=== PATIENT | male | born 1960 ===

== ENCOUNTER 2019-08-28 18:10 | Day surgery (SDC) | payer OTHER ==
--- NOTE | 2019-08-28 19:02 | EDM.PDOC ---
ED HPI GENERAL MEDICAL PROBLEM - General Chief Complaint: Genitourinary Problem Stated Complaint: STOMACH PAIN Time Seen by Provider: 08/28/19 19:02 Source of Information: Reports: Patient History Limitations: Reports: No Limitations - History of Present Illness INITIAL COMMENTS - FREE TEXT/NARRATIVE: HISTORY AND PHYSICAL: History of present illness: Patient is a 59-year-old male presents to the ED with complaint of groin swelling. He states over the past few days he has developed swelling to the left right groin area. He states the area is tender. He states he has not had a bowel movement in 4 days and is having frequent urination and this it is related to the swelling. He states he did have some bright red blood per rectum yesterday but not bowel movement. He denies fevers, chills, nausea, vomiting. Review of systems: As per history of present illness and below otherwise all systems reviewed and negative. Past medical history: As per history of present illness and as reviewed below otherwise noncontributory. Surgical history: As per history of present illness and as reviewed below otherwise noncontributory. Social history: No reported history of drug or alcohol abuse. Family history: As per history of present illness and as reviewed below otherwise noncontributory. Physical exam: General: Patient sitting comfortably in no acute distress and nontoxic appearing HEENT: Atraumatic, normocephalic, pupils reactive, negative for conjunctival pallor or scleral icterus, mucous membranes moist, throat clear, neck supple, nontender, trachea midline. No meningeal signs. Lungs: Clear to auscultation, breath sounds equal bilaterally, chest nontender. Heart: S1S2, regular, negative for clicks, rubs, or overt murmur. Abdomen: Soft, nondistended, nontender. Negative for masses or hepatosplenomegaly. Negative for costovertebral tenderness. No rigidity, rebound , guarding. Pelvis: Stable nontender. Genitourinary: There is a large area of swelling to the left groin without erythema. Tender to palpation. Rectal: No hemorrhoids appreciated. Hemoccult positive Extremities: Atraumatic, negative for cords or calf pain. Neurovascular unremarkable. Neuro: Awake, alert, oriented. Cranial nerves II through XII unremarkable. Cerebellum unremarkable. Motor and sensory unremarkable throughout. Exam nonfocal. Notes: Diagnostics: CBC, CMP, CT abdomen/pelvis w/ contrast, UA Therapeutics: [] Prescriptions: Impression: Incarcerated left inguinal hernia, large bowel obstruction Plan: Discussed with Dr. Champion, patient will be taken to OR for incarcerated hernia Definitive disposition and diagnosis as appropriate pending reevaluation and review of above. Pelvic Pain Score (Numeric/FACES): 7 - Related Data Allergies Allergy/AdvReac Type Severity Reaction Status Date / Time No Known Allergies Allergy Verified 08/28/19 18:21 Home Meds: Home Meds . [No Known Home Meds] 08/28/19 [History] Past Medical History - Infectious Disease History Infectious Disease History: Reports: Chicken Pox, Measles - Past Surgical History Musculoskeletal Surgical History: Reports: Hip Replacement Social & Family History - Family History Family Medical History: Noncontributory - Tobacco Use Smoking Status *Q: Never Smoker Second Hand Smoke Exposure: No - Caffeine Use Caffeine Use: Reports: Coffee - Recreational Drug Use Recreational Drug Use: No ED ROS GENERAL - Review of Systems Review Of Systems: ROS reveals no pertinent complaints other than HPI. ED EXAM, RENAL/ - Physical Exam Exam: See Below (see dictation) Course - Vital Signs Last Recorded V/S: Last Vital Signs Temp 97.4 F 08/28/19 20:00 Pulse 88 08/28/19 20:00 Resp 18 08/28/19 20:00 BP 114/73 08/28/19 20:00 Pulse Ox 96 08/28/19 20:00 - Orders/Labs/Meds Orders: Active Orders 24 hr Category Date Time Status Admission Status [Patient Status] [ADT] Stat ADT 08/28/19 20:16 Active Labs: Laboratory Tests 08/28/19 08/28/19 08/28/19 Range/Units 18:27 18:40 18:40 WBC 11.27 H (4.0-11.0) K/uL RBC 5.33 (4.50-5.90) M/uL Hgb 17.6 H (13.0-17.0) g/dL Hct 49.2 (38.0-50.0) % MCV 92.3 (80.0-98.0) fL MCH 33.0 H (27.0-32.0) pg MCHC 35.8 (31.0-37.0) g/dL RDW Std Deviation 41.0 (28.0-62.0) fl RDW Coeff of Esther 12 (11.0-15.0) % Plt Count 249 (150-400) K/uL MPV 10.00 (7.40-12.00) fL Neut % (Auto) 74.5 (48.0-80.0) % Lymph % (Auto) 14.6 L (16.0-40.0) % [place] % (Auto) 9.5 (0.0-15.0) % Eos % (Auto) 1.2 (0.0-7.0) % Baso % (Auto) 0.2 (0.0-1.5) % Neut # (Auto) 8.4 H (1.4-5.7) K/uL Lymph # (Auto) 1.7 (0.6-2.4) K/uL [place] # (Auto) 1.1 H (0.0-0.8) K/uL Eos # (Auto) 0.1 (0.0-0.7) K/uL Baso # (Auto) 0.0 (0.0-0.1) K/uL Nucleated RBC % 0.0 /100WBC Nucleated RBCs # 0 K/uL Sodium 137 (136-148) mmol/L Potassium 3.9 (3.5-5.1) mmol/L Chloride 101 (98-107) mmol/L Carbon Dioxide 23.9 (21.0-32.0) mmol/L BUN 21 H (7.0-18.0) mg/dL Creatinine 1.2 (0.8-1.3) mg/dL Est Cr Clr Drug Dosing 79.22 mL/min Estimated GFR (MDRD) > 60.0 ml/min Glucose 150 H (74-106) mg/dL Calcium 8.9 (8.5-10.1) mg/dL Total Bilirubin 0.8 (0.2-1.0) mg/dL AST 13 L (15-37) IU/L ALT 23 (14-63) IU/L Alkaline Phosphatase 113 (46-116) U/L Total Protein 8.0 (6.4-8.2) g/dL Albumin 3.7 (3.4-5.0) g/dL Globulin 4.3 H (2.6-4.0) g/dL Albumin/Globulin Ratio 0.9 (0.9-1.6) Urine Color YELLOW Urine Appearance HAZY Urine pH 5.5 (5.0-8.0) Ur Specific [place] 1.025 (1.001-1.035) Urine Protein NEGATIVE (NEGATIVE) mg/dL Urine Glucose (UA) NEGATIVE (NEGATIVE) mg/dL Urine Ketones TRACE H (NEGATIVE) mg/dL Urine Occult Blood NEGATIVE (NEGATIVE) Urine Nitrite NEGATIVE (NEGATIVE) Urine Bilirubin NEGATIVE (NEGATIVE) Urine Urobilinogen 0.2 (<2.0) EU/dL Ur Leukocyte Esterase NEGATIVE (NEGATIVE) Meds: Medications Discontinued Medications Generic Name Dose Route Start Last Admin Trade Name Freq PRN Reason Stop Dose Admin Iopamidol 100 ml 08/28/19 19:54 08/28/19 19:54 Isovue Multipack-370 (76%) IVPUSH 08/28/19 19:55 100 ml ONETIME STA Administration Departure - Departure Time of Disposition: 20:40 Disposition: Still A Patient 30 Condition: Good Clinical Impression: Incarcerated left inguinal hernia, Large bowel obstruction - Discharge Information - My Orders Last 24 Hours: My Active Orders 08/28/19 20:16 Admission Status [Patient Status] [ADT] Stat - Assessment/Plan Last 24 Hours: My Active Orders 08/28/19 20:16 Admission Status [Patient Status] [ADT] Stat
[2019-08-28 19:03] LABS: BLOOD UREA NITROGEN,BUN 21 mg/dL (7.0-18.0); CARBON DIOXIDE,CO2 23.9 mmol/L (21.0-32.0); CHLORIDE,CL 101 mmol/L (98-107); GLUCOSE RANDOM 150 mg/dL (74-106); POTASSIUM,K 3.9 mmol/L (3.5-5.1); SODIUM,NA 137 mmol/L (136-148)
[2019-08-28] MEDS ORDERED: Iopamidol 755 MG/ML 500 ML Multipack Bottle IVPUSH STA (19:54)
--- NOTE | 2019-08-28 20:18 | CT ---
INDICATION: Left lower quadrant pain and swelling x4 days. TECHNIQUE: CT abdomen and pelvis acquired with 100 mL of Isovue 370 IV contrast. COMPARISON: None. FINDINGS: Lower chest: Minimal bibasilar scarring or atelectasis. Lung bases are otherwise clear. No pleural or pericardial effusions. Small hiatal hernia. Liver: No focal liver lesion. Spleen: Lesion with peripheral irregular enhancement measures 2.4 cm. Pancreas: Unremarkable. Gallbladder and bile ducts: Unremarkable. Kidneys: Unremarkable. Adrenal glands: Unremarkable. GI tract: The proximal large bowel is mildly distended and loaded with fecal material. There is large bowel extending into a left inguinal hernia with abrupt change in caliber distal to the hernia along with heterogeneous fat stranding and fluid within the left inguinal hernia. There is adjacent colonic diverticulosis with pericolonic stranding. No definite perforation or drainable intra-abdominal fluid collection. Normal appendix. Vascular structures: No abdominal aortic aneurysm. Lymph nodes: No pathologic lymphadenopathy. Pelvic Organs: Mild prostatomegaly. There is mild mass effect on the bladder as result of the hernia and inflammatory changes in the left lower quadrant. Bones: No acute osseous abnormality. Degenerative changes of the spine and pelvis. Left hip arthroplasty appears intact. IMPRESSION: 1. Evolving large bowel obstruction with transition point in a left inguinal hernia. There are inflammatory changes in the left lower quadrant and hernia sac along with a small amount of fluid in the hernia. No definite perforation. The inflammatory changes adjacent to the bowel are thought to be related to obstruction and less likely superimposed diverticulitis. Surgical consultation recommended. 2. Peripheral enhancing lesion in the spleen is thought to most likely represent a hemangioma. However, follow-up CT or MRI liver protocol in 6 months is recommended to document stability. Large bowel obstruction was discussed with Dr. Quach at the time of dictation. Dictated by Gamaliel Joseph MD @ 08/28/2019 8:15:42 PM Please note that all CT scans at this facility use dose modulation, iterative reconstruction, and/or weight-based dosing when appropriate to reduce radiation dose to as low as reasonably achievable. Dictated by: Gamaliel Joseph MD @ 08/28/2019 20:15:57 (Electronically Signed)
[2019-08-28] MEDS ORDERED: cefOXitin 2 GM in Premix Bag 1 BAG IV ONE (20:46)
[2019-08-28] MEDS ORDERED: Lactated Ringers 1,000 ML IV SCH ×2 (21:00→23:45)
--- NOTE | 2019-08-28 21:02 | PCM.CONS ---
H&P History of Present Illness - General Date of Service: 08/28/19 Admit Problem/Dx: Admission Diagnosis/Problem Admission Diagnosis/Problem Abdominal pain Incarcerated left inguinal hernia Source of Information: Patient History Limitations: Reports: No Limitations - History of Present Illness Initial Comments - Free Text/Narative: Patient is a 59-year-old gentleman who presented to the emergency room today with a 4 to five-day history of a bulge in the left groin. He cannot think of any antecedent trauma. He is now unable to reduce the bulge. He states he is constipated. He denies any nausea or vomiting. He last had something to eat at about 4 PM today. He was able to keep that down. He does however state his appetite is poor. Duration of Symptoms: Reports: Day(s):, Getting Worse Location: Reports: Abdomen Quality: Reports: Pressure, Throbbing Severity: Severe Improves with: Reports: Rest Worsens with: Reports: Movement Context: Reports: Sick Contact Associated Symptoms: Reports: Loss of Appetite. Denies: Confusion, Fever/Chills Pelvic Pain Score (Numeric/FACES): 7 - Related Data Allergies/Adverse Reactions: Allergies Allergy/AdvReac Type Severity Reaction Status Date / Time No Known Allergies Allergy Verified 08/28/19 18:21 Home Medications: Home Meds . [No Known Home Meds] 08/28/19 [History] Past Medical History - Infectious Disease History Infectious Disease History: Reports: Chicken Pox, Measles - Past Surgical History Musculoskeletal Surgical History: Reports: Hip Replacement Social & Family History - Family History Family Medical History: Noncontributory - Tobacco Use Smoking Status *Q: Never Smoker Second Hand Smoke Exposure: No - Caffeine Use Caffeine Use: Reports: Coffee - Recreational Drug Use Recreational Drug Use: No H&P Review of Systems - Review of Systems: Review Of Systems: See Below General: Denies: Fever, Chills, Malaise, Weakness, Fatigue HEENT: Reports: No Symptoms Pulmonary: Denies: Shortness of Breath, Wheezing Cardiovascular: Denies: Chest Pain, Palpitations Gastrointestinal: Reports: Abdominal Pain, Anorexia, Constipation, Decreased Appetite, Flatus. Denies: Black Stool, Bloody Stool, Diarrhea, Distension, Hematemesis, Hematochezia, Melena, Nausea, Vomiting Genitourinary: Denies: Dysuria, Frequency, Burning, Pain, Urgency Skin: Reports: No Symptoms Psychiatric: Reports: No Symptoms Neurological: Reports: No Symptoms Hematologic/Lymphatic: Reports: No Symptoms Immunologic: Reports: No Symptoms Exam - Exam Exam: See Below - Vital Signs Vital Signs: Last Vital Signs Temp 97.4 F 08/28/19 20:52 Pulse 88 08/28/19 20:52 Resp 18 08/28/19 20:52 BP 101/76 08/28/19 20:52 Pulse Ox 95 08/28/19 20:52 Weight: 195 lb - Exam Quality Assessment: No: Supplemental Oxygen General: Alert, Oriented, Cooperative, Moderate Distress HEENT: Conjunctiva Clear, EACs Clear, EOMI, Pupils Equal, Pupils Reactive. No: Scleral Icterus Neck: Supple, Trachea Midline Lungs: Clear to Auscultation, Normal Respiratory Effort, Decreased Breath Sounds Cardiovascular: Regular Rate, Regular Rhythm, Normal S1, Normal S2 GI/Abdominal Exam: Normal Bowel Sounds, Soft, No Distention, Tender, Hernia ( Incarcerated left inguinal). No: Guarding, Rigid, Rebound (Male) Exam: Deferred, Hernia Rectal (Males) Exam: Deferred Back Exam: Normal Inspection, Full Range of Motion Extremities: Normal Inspection, Normal Range of Motion, Other (Well-healed left hip incision.) Peripheral Pulses: 4+: Posterior Tibial (L), Posterior Tibial (R), Dorsalis Pedis (L), Dorsalis Pedis (R) Skin: Warm, Dry, Intact Neurological: Cranial Nerves Intact, Reflexes Equal Bilateral Psychiatric: Alert, Normal Affect, Normal Mood - Patient Data Lab Results Last 24 hrs: Laboratory Results - last 24 hr 08/28/19 08/28/19 08/28/19 Range/Units 18:27 18:40 18:40 WBC 11.27 H (4.0-11.0) K/uL RBC 5.33 (4.50-5.90) M/uL Hgb 17.6 H (13.0-17.0) g/dL Hct 49.2 (38.0-50.0) % MCV 92.3 (80.0-98.0) fL MCH 33.0 H (27.0-32.0) pg MCHC 35.8 (31.0-37.0) g/dL RDW Std Deviation 41.0 (28.0-62.0) fl RDW Coeff of Esther 12 (11.0-15.0) % Plt Count 249 (150-400) K/uL MPV 10.00 (7.40-12.00) fL Neut % (Auto) 74.5 (48.0-80.0) % Lymph % (Auto) 14.6 L (16.0-40.0) % [place] % (Auto) 9.5 (0.0-15.0) % Eos % (Auto) 1.2 (0.0-7.0) % Baso % (Auto) 0.2 (0.0-1.5) % Neut # (Auto) 8.4 H (1.4-5.7) K/uL Lymph # (Auto) 1.7 (0.6-2.4) K/uL [place] # (Auto) 1.1 H (0.0-0.8) K/uL Eos # (Auto) 0.1 (0.0-0.7) K/uL Baso # (Auto) 0.0 (0.0-0.1) K/uL Nucleated RBC % 0.0 /100WBC Nucleated RBCs # 0 K/uL Sodium 137 (136-148) mmol/L Potassium 3.9 (3.5-5.1) mmol/L Chloride 101 (98-107) mmol/L Carbon Dioxide 23.9 (21.0-32.0) mmol/L BUN 21 H (7.0-18.0) mg/dL Creatinine 1.2 (0.8-1.3) mg/dL Est Cr Clr Drug Dosing 79.22 mL/min Estimated GFR (MDRD) > 60.0 ml/min Glucose 150 H (74-106) mg/dL Calcium 8.9 (8.5-10.1) mg/dL Total Bilirubin 0.8 (0.2-1.0) mg/dL AST 13 L (15-37) IU/L ALT 23 (14-63) IU/L Alkaline Phosphatase 113 (46-116) U/L Total Protein 8.0 (6.4-8.2) g/dL Albumin 3.7 (3.4-5.0) g/dL Globulin 4.3 H (2.6-4.0) g/dL Albumin/Globulin Ratio 0.9 (0.9-1.6) Urine Color YELLOW Urine Appearance HAZY Urine pH 5.5 (5.0-8.0) Ur Specific [place] 1.025 (1.001-1.035) Urine Protein NEGATIVE (NEGATIVE) mg/dL Urine Glucose (UA) NEGATIVE (NEGATIVE) mg/dL Urine Ketones TRACE H (NEGATIVE) mg/dL Urine Occult Blood NEGATIVE (NEGATIVE) Urine Nitrite NEGATIVE (NEGATIVE) Urine Bilirubin NEGATIVE (NEGATIVE) Urine Urobilinogen 0.2 (<2.0) EU/dL Ur Leukocyte Esterase NEGATIVE (NEGATIVE) Result Diagrams: 08/28/19 18:40 08/28/19 18:40 Consult PN Assessment/Plan (1) Incarcerated left inguinal hernia SNOMED Code(s): 213398512 Code(s): K40.30 - UNIL INGUINAL HERNIA, W OBST, W/O GANGR, NOT SPCF RECUR Priority: High Current Visit: Yes (2) Large bowel obstruction SNOMED Code(s): 483055270 Code(s): K56.609 - UNSP INTESTNL OBST, UNSP TO PARTIAL VERSUS COMPLETE OBST Priority: High Current Visit: Yes Problem List Initiated/Reviewed/Updated: Yes My Orders Last 24 Hours: My Active Orders 08/28/19 20:46 cefOXitin [Mefoxin in Dextrose,Iso-Osm 2 GM/50 ML] 2 gm Premix Bag 1 bag IV ONETIME 08/28/19 20:55 Antiembolic Devices [RC] PER UNIT ROUTINE Oxygen Therapy [RC] ASDIRECTED Pulse Oximetry [RC] ASDIRECTED Skin Preparation [RC] ASDIRECTED Vital Signs [RC] Q1H Antiembolic Hose [OM.PC] Routine Sequential Compression Device [OM.PC] Routine Resuscitation Status Routine 08/28/19 20:56 Urinary Catheter Assessment [RC] ASDIRECTED 08/28/19 21:00 Davis Catheter Insertion [Insert Urinary Catheter] [OM.PC] Q24H Lactated Ringers @ 125 MLS/HR(1,000ml) Lactated Ringers [Ringers, Lactated] 1, 000 ml IV ASDIRECTED 08/28/19 Dinner Nothing Per Oral Diet [DIET] Plan: Exploration of left inguinal canal with repair of incarcerated left inguinal hernia after reduction of large intestine. Possible laparotomy with possible bowel resection and/or colostomy if needed. All operative approaches along with the risks including but not limited to bleeding, infection, pneumonia, deep venous thrombosis, pulmonary emboli, myocardial infarction, the possibility of 2 incisions and the possibility of a bowel resection and possible colostomy or ileostomy have been reviewed with the patient in the emergency room this evening. He was given the opportunity to ask questions and his questions have been answered. He does agree to proceed. He will be a code level I.
[2019-08-28] MEDS ORDERED: Bupivacaine 0.5% 30 ML SDV ONE (21:17)
[2019-08-28] MEDS ORDERED: Propofol 200 MG/20 ML SDV ONE (21:20)
[2019-08-28] MEDS ORDERED: fentaNYL 250 MCG/5 ML SDV ONE (21:22)
[2019-08-28] MEDS ORDERED: Rocuronium 100 MG/10 ML Syringe ONE (21:22)
[2019-08-28] MEDS ORDERED: Midazolam 1 MG/ML 2 ML SDV ONE (21:22)
[2019-08-28] MEDS ORDERED: Lidocaine 2% 5 ML SDV ONE (21:22)
--- NOTE | 2019-08-28 21:35 | PCM.PREANE ---
Preanesthetic Assessment - Anesthesia/Transfusion/Family Hx Anesthesia History: Prior Anesthesia Without Reaction Family History of Anesthesia Reaction: No Transfusion History: Unknown Intubation History: Unknown - Review of Systems General: No Symptoms Pulmonary: No Symptoms Cardiovascular: No Symptoms Gastrointestinal: Abdominal Pain Neurological: No Symptoms Other: Reports: None - Physical Assessment Vital Signs: Last Vital Signs Temp 36.3 C 08/28/19 20:52 Pulse 88 08/28/19 20:52 Resp 18 08/28/19 20:52 BP 101/76 08/28/19 20:52 Pulse Ox 95 08/28/19 20:52 Height: 6 ft 3 in Weight: 88.451 kg ASA Class: 2E Mental Status: Alert & Oriented x3 Airway Class: Mallampati = 2 Dentition: Reports: Normal Dentition, Bridge (upper and lower- front, fixed) Thyro-Mental Finger Breadths: 3 Mouth Opening Finger Breadths: 3 ROM/Head Extension: Full Lungs: Clear to Auscultation, Normal Respiratory Effort Cardiovascular: Regular Rate, Regular Rhythm - Lab Values: Laboratory Last Values WBC 11.27 K/uL (4.0-11.0) H 08/28/19 18:40 RBC 5.33 M/uL (4.50-5.90) 08/28/19 18:40 Hgb 17.6 g/dL (13.0-17.0) H 08/28/19 18:40 Hct 49.2 % (38.0-50.0) 08/28/19 18:40 MCV 92.3 fL (80.0-98.0) 08/28/19 18:40 MCH 33.0 pg (27.0-32.0) H 08/28/19 18:40 MCHC 35.8 g/dL (31.0-37.0) 08/28/19 18:40 RDW Std Deviation 41.0 fl (28.0-62.0) 08/28/19 18:40 RDW Coeff of [place] 12 % (11.0-15.0) 08/28/19 18:40 Plt Count 249 K/uL (150-400) 08/28/19 18:40 MPV 10.00 fL (7.40-12.00) 08/28/19 18:40 Neut % (Auto) 74.5 % (48.0-80.0) 08/28/19 18:40 Lymph % (Auto) 14.6 % (16.0-40.0) L 08/28/19 18:40 [place] % (Auto) 9.5 % (0.0-15.0) 08/28/19 18:40 Eos % (Auto) 1.2 % (0.0-7.0) 08/28/19 18:40 Baso % (Auto) 0.2 % (0.0-1.5) 08/28/19 18:40 Neut # (Auto) 8.4 K/uL (1.4-5.7) H 08/28/19 18:40 Lymph # (Auto) 1.7 K/uL (0.6-2.4) 08/28/19 18:40 [place] # (Auto) 1.1 K/uL (0.0-0.8) H 08/28/19 18:40 Eos # (Auto) 0.1 K/uL (0.0-0.7) 08/28/19 18:40 Baso # (Auto) 0.0 K/uL (0.0-0.1) 08/28/19 18:40 Nucleated RBC % 0.0 /100WBC 08/28/19 18:40 Nucleated RBCs # 0 K/uL 08/28/19 18:40 Sodium 137 mmol/L (136-148) 08/28/19 18:40 Potassium 3.9 mmol/L (3.5-5.1) 08/28/19 18:40 Chloride 101 mmol/L (98-107) 08/28/19 18:40 Carbon Dioxide 23.9 mmol/L (21.0-32.0) 08/28/19 18:40 BUN 21 mg/dL (7.0-18.0) H 08/28/19 18:40 Creatinine 1.2 mg/dL (0.8-1.3) 08/28/19 18:40 Est Cr Clr Drug Dosing 79.22 mL/min 08/28/19 18:40 Estimated GFR (MDRD) > 60.0 ml/min 08/28/19 18:40 Glucose 150 mg/dL (74-106) H 08/28/19 18:40 Calcium 8.9 mg/dL (8.5-10.1) 08/28/19 18:40 Total Bilirubin 0.8 mg/dL (0.2-1.0) 08/28/19 18:40 AST 13 IU/L (15-37) L 08/28/19 18:40 ALT 23 IU/L (14-63) 08/28/19 18:40 Alkaline Phosphatase 113 U/L (46-116) 08/28/19 18:40 Total Protein 8.0 g/dL (6.4-8.2) 08/28/19 18:40 Albumin 3.7 g/dL (3.4-5.0) 08/28/19 18:40 Globulin 4.3 g/dL (2.6-4.0) H 08/28/19 18:40 Albumin/Globulin Ratio 0.9 (0.9-1.6) 08/28/19 18:40 Urine Color YELLOW 08/28/19 18:27 Urine Appearance HAZY 08/28/19 18:27 Urine pH 5.5 (5.0-8.0) 08/28/19 18:27 Ur Specific [place] 1.025 (1.001-1.035) 08/28/19 18:27 Urine Protein NEGATIVE mg/dL (NEGATIVE) 08/28/19 18:27 Urine Glucose (UA) NEGATIVE mg/dL (NEGATIVE) 08/28/19 18:27 Urine Ketones TRACE mg/dL (NEGATIVE) H 08/28/19 18:27 Urine Occult Blood NEGATIVE (NEGATIVE) 08/28/19 18:27 Urine Nitrite NEGATIVE (NEGATIVE) 08/28/19 18:27 Urine Bilirubin NEGATIVE (NEGATIVE) 08/28/19 18:27 Urine Urobilinogen 0.2 EU/dL (<2.0) 08/28/19 18:27 Ur Leukocyte Esterase NEGATIVE (NEGATIVE) 08/28/19 18:27 - Allergies Allergies/Adverse Reactions: Allergies Allergy/AdvReac Type Severity Reaction Status Date / Time No Known Allergies Allergy Verified 08/28/19 18:21 - Blood Blood Available: No - Anesthesia Plan Pre-Op Medication Ordered: None - Acknowledgements Anesthesia Type Planned: General Anesthesia Pt an Appropriate Candidate for the Planned Anesthesia: Yes Alternatives and Risks of Anesthesia Discussed w Pt/Guardian: Yes Pt/Guardian Understands and Agrees with Anesthesia Plan: Yes PreAnesthesia Questionnaire - Infectious Disease History Infectious Disease History: Reports: Chicken Pox, Measles - Past Surgical History Musculoskeletal Surgical History: Reports: Hip Replacement (left hip 2 years ago in [place]) - SUBSTANCE USE Smoking Status *Q: Never Smoker Second Hand Smoke Exposure: No Recreational Drug Use History: No - HOME MEDS Home Medications: Home Meds . [No Known Home Meds] 08/28/19 [History] - CURRENT (IN HOUSE) MEDS Current Meds: Current Medications Lactated Ringer's (Ringers, Lactated) 1,000 mls @ 125 mls/hr IV ASDIRECTED EULALIO Last Admin: 08/28/19 21:13 Dose: 125 mls/hr Discontinued Medications Bupivacaine HCl (Marcaine 0.5%) Confirm Administered Dose 30 ml .ROUTE .STK-MED ONE Stop: 08/28/19 21:18 Fentanyl (Sublimaze) Confirm Administered Dose 250 mcg .ROUTE .STK-MED ONE Stop: 08/28/19 21:23 Cefoxitin Sodium 2 gm/ Premix 50 mls @ 100 mls/hr IV ONETIME ONE Stop: 08/28/19 21:15 Last Admin: 08/28/19 21:11 Dose: 100 mls/hr Iopamidol (Isovue Multipack-370 (76%)) 100 ml IVPUSH ONETIME STA Stop: 08/28/19 19:55 Last Admin: 08/28/19 19:54 Dose: 100 ml Lidocaine (Xylocaine-Mpf 2%) Confirm Administered Dose 5 ml .ROUTE .STK-MED ONE Stop: 08/28/19 21:23 Midazolam HCl (Versed 1 Mg/Ml) Confirm Administered Dose 2 mg .ROUTE .STK-MED ONE Stop: 08/28/19 21:23 Propofol (Diprivan 20 Ml) Confirm Administered Dose 200 mg .ROUTE .STK-MED ONE Stop: 08/28/19 21:21 Rocuronium [place] (Zemuron) Confirm Administered Dose 100 mg .ROUTE .STK-MED ONE Stop: 08/28/19 21:23 Succinylcholine Chloride (Succinylcholine Chloride) Confirm Administered Dose 200 mg .ROUTE .STK-MED ONE Stop: 08/28/19 21:24
[2019-08-28] MEDS ORDERED: Dexamethasone 4 MG/ML 5 ML MDV ONE (22:07)
[2019-08-28] MEDS ORDERED: Ondansetron 4 MG/2 ML SDV ONE ×2 (22:07)
[2019-08-28] MEDS ORDERED: ePHEDrine 50 MG/ML SDV ONE (22:31)
[2019-08-28] MEDS ORDERED: ceFAZolin 1 GM Vial ONE (22:47)
[2019-08-28] MEDS ORDERED: Ketorolac 30 MG/ML SDV ONE (23:21)
[2019-08-28] MEDS ORDERED: Ondansetron 4 MG/2 ML SDV IVPUSH PRN ×2 (23:22→23:48)
[2019-08-28] MEDS ORDERED: fentaNYL 100 MCG/2 ML SDV IVPUSH PRN (23:22)
[2019-08-28] MEDS ORDERED: HYDROmorphone 2 MG/ML Syringe IVPUSH PRN (23:24)
[2019-08-28] MEDS ORDERED: Neostigmine Methylsulfate 1 MG/ML 5 ML Syringe ONE (23:28)
[2019-08-28] MEDS ORDERED: Glycopyrrolate 0.2 MG/ML SDV ONE (23:28)
[2019-08-28] MEDS ORDERED: Morphine 10 MG/ML Syringe IVPUSH PRN (23:48)
--- NOTE | 2019-08-28 23:53 | PCM.OPNOTE ---
- General Post-Op/Procedure Note Date of Surgery/Procedure: 08/28/19 Operative Procedure(s): Repair incarcerated sliding left inguinal hernia with Bard patch. Resection infarcted appendices epiploica Pre Op Diagnosis: Incarcerated left inguinal hernia Post-Op Diagnosis: Incarcerated sliding left inguinal hernia. Infarcted appendices epiploica Primary Surgeon: Lai Champion Painting Supervisor: Shahrzad Jimenez Fluid Replacement, Intraop: 2,000 Output, Urine Amount: 100 EBL in mLs: 30 Condition: Stable Free Text/Narrative:: DICTATION [id number]
--- NOTE | 2019-08-29 00:25 | PCM.POSTAN ---
POST ANESTHESIA ASSESSMENT - MENTAL STATUS Mental Status: Alert, Oriented - VITAL SIGNS Vital Signs: Last Vital Signs Temp 36.1 C 08/28/19 23:50 Pulse 81 08/29/19 00:20 Resp 11 L 08/29/19 00:20 BP 135/89 08/29/19 00:20 Pulse Ox 95 08/29/19 00:20 - RESPIRATORY Respiratory Status: Respiratory Rate WNL, Airway Patent, O2 Saturation Stable - CARDIOVASCULAR CV Status: Pulse Rate WNL, Blood Pressure Stable - GASTROINTESTINAL GI Status: No Symptoms - PAIN Pain Score: 5 - POST OP HYDRATION Hydration Status: Adequate & Stable - OBSERVATIONS Free Text/Narrative:: The patient tolerated the procedure well. There were no apparent anesthetic complications at this time. Discharge to floor per criteria.
[2019-08-29] MEDS: Acetaminophen/HYDROcodone 325-5 MG Tab PO PRN ×2 (01:12→08:04)
--- NOTE | 2019-08-29 01:20 | OR ---
SURGEON: Lai Champion M.D. DATE OF PROCEDURE: 08/28/2019 OPERATION PERFORMED: Exploration of left groin for incarcerated sliding left inguinal hernia with resection of infarcted appendices epiploica, resection of the hernia sac, and repair of the left inguinal hernia with placement of a Bard patch. CHILD CENTER ASSISTANT: Printing Press Machine Operator: TARIQ Palafox, first aid teacher student. ANESTHESIA: General endotracheal. ASA CLASSIFICATION: IIE. PREOPERATIVE DIAGNOSIS: Incarcerated left inguinal hernia. POSTOPERATIVE DIAGNOSIS: Incarcerated left inguinal hernia with infarcted appendices epiploica. ESTIMATED BLOOD LOSS: 30 mL. INTRAOPERATIVE FLUID REPLACEMENT: 2000 mL. INTRAOPERATIVE URINE OUTPUT: 100 mL. DESCRIPTION OF PROCEDURE: The patient was taken to the operating room and placed on the operating table in the supine position. Time-out was called for appropriate identification of patient and procedure. Sequential compression boots were placed. Surgical site was readily identified in the left inguinal canal. Following satisfactory attainment of general endotracheal anesthesia, a Davis catheter was placed in the patient's urinary bladder. The abdomen was prepped with ChloraPrep solution. Sterile drapes were applied. Skin incision was made directly over the mass in the left inguinal crease and dissected down through the subcutaneous tissue obtaining hemostasis with the use of electrocautery. A great deal of dissection was done sharply as it could not be determined exactly where the hernia sac was or how much bowel was involved. With gentle tedious dissection, we were able to circumscribe the large mass. Again, with gentle dissection, we were able to enter the hernia sac at which point we encountered an infarcted appendices epiploica. The bowel itself appeared quite viable and healthy and pink in color. Once the bowel was completely mobilized, the hernia sac was amputated using the Harmonic scalpel. I was then able to return the sigmoid colon to its normal anatomic location. Because there was such a large defect, I did not feel that it was safe to place a plug into this defect and have an indirect contact with the bowel. The wound was inspected for hemostasis and bleeding sites were electrocoagulated. A Bard patch was soaked in 1% Ancef solution and placed over the inguinal floor to reinforce it. This was secured with multiple interrupted 0 Ethibond suture superiorly to transversalis fascia and inferiorly to Koyd's ligament transitioning to the inguinal ligament. Again, the wings were brought around the cord, which had been identified and encircled with a Thu drain. The wings were secured laterally with an 0 Ethibond suture. All sutures were tied down, and the patient was given a Valsalva maneuver to 70 cm of water. The repair was solid. The wound was then irrigated with 1% Ancef solution. The cord was returned to its anatomic location. The external oblique was reapproximated with running 3-0 Vicryl. The incision was then infiltrated with 10 mL of 0.5% Marcaine solution. Moraima's fascia was closed with running 3-0 Vicryl. The skin edges were reapproximated with subcuticular 3-0 Monocryl reinforced with half-inch Steri-Strips. Sterile Tegaderm pad was placed as a dressing. Sponge, needle, and instrument counts were all correct. Prior to emergence from anesthesia, the Davis catheter was removed. Following emergence from anesthesia and extubation, the patient was taken to recovery room in stable condition. ADILSON CASTRO /[id number] DELFINO
--- NOTE | 2019-08-29 07:48 | PCM48HPAN ---
Post Anesthesia Note - EVALUATION WITHIN 48HRS OF ANESTHETIC Vital Signs in Normal Range: Yes Patient Participated in Evaluation: Yes Respiratory Function Stable: Yes Airway Patent: Yes Cardiovascular Function Stable: Yes Hydration Status Stable: Yes Pain Control Satisfactory: Yes Nausea and Vomiting Control Satisfactory: Yes Mental Status Recovered: Yes Vital Signs: Last Vital Signs Temp 36.3 C 08/29/19 00:45 Pulse 77 08/29/19 04:18 Resp 14 08/29/19 04:18 BP 111/72 08/29/19 04:18 Pulse Ox 94 L 08/29/19 04:18 - COMMENTS/OBSERVATIONS Free Text/Narrative:: There were no apparent anesthetic complications at this time. Discharge per criteria.
--- NOTE | 2019-08-29 09:38 | PCM.SURGPN ---
- General Info Date of Service: 08/29/19 POD#: 1 Post-Op Diagnosis: Incarcerated sliding left inguinal hernia with infarcted appendices epiploica Functional Status: Reports: Pain Controlled, Tolerating Diet, Ambulating, Urinating. Denies: New Symptoms - Review of Systems General: Denies: Fever, Weakness, Fatigue HEENT: Reports: No Symptoms Pulmonary: Denies: Shortness of Breath Cardiovascular: Denies: Chest Pain Gastrointestinal: Denies: Abdominal Pain, Constipation, Decreased Appetite, Diarrhea, Nausea, Vomiting Genitourinary: Denies: Dysuria, Frequency, Burning, Pain, Urgency Musculoskeletal: Reports: No Symptoms Skin: Reports: No Symptoms Neurological: Reports: No Symptoms Psychiatric: Reports: No Symptoms - Patient Data Vitals - Most Recent: Last Vital Signs Temp 97.3 F 08/29/19 00:45 Pulse 77 08/29/19 04:18 Resp 14 08/29/19 04:18 BP 111/72 08/29/19 04:18 Pulse Ox 94 L 08/29/19 04:18 Weight - Most Recent: 194 lb 15.982 oz I&O - Last 24 Hours: Intake & Output 08/28/19 08/29/19 08/29/19 19:59 03:59 11:59 Intake Total 6300 220 Output Total 300 500 Balance 6000 -280 Lab Results Last 24 Hrs: Laboratory Results - last 24 hr 08/28/19 08/28/19 08/28/19 Range/Units 18:27 18:40 18:40 WBC 11.27 H (4.0-11.0) K/uL RBC 5.33 (4.50-5.90) M/uL Hgb 17.6 H (13.0-17.0) g/dL Hct 49.2 (38.0-50.0) % MCV 92.3 (80.0-98.0) fL MCH 33.0 H (27.0-32.0) pg MCHC 35.8 (31.0-37.0) g/dL RDW Std Deviation 41.0 (28.0-62.0) fl RDW Coeff of Esther 12 (11.0-15.0) % Plt Count 249 (150-400) K/uL MPV 10.00 (7.40-12.00) fL Neut % (Auto) 74.5 (48.0-80.0) % Lymph % (Auto) 14.6 L (16.0-40.0) % Mcclain % (Auto) 9.5 (0.0-15.0) % Eos % (Auto) 1.2 (0.0-7.0) % Baso % (Auto) 0.2 (0.0-1.5) % Neut # (Auto) 8.4 H (1.4-5.7) K/uL Lymph # (Auto) 1.7 (0.6-2.4) K/uL Mcclain # (Auto) 1.1 H (0.0-0.8) K/uL Eos # (Auto) 0.1 (0.0-0.7) K/uL Baso # (Auto) 0.0 (0.0-0.1) K/uL Nucleated RBC % 0.0 /100WBC Nucleated RBCs # 0 K/uL Sodium 137 (136-148) mmol/L Potassium 3.9 (3.5-5.1) mmol/L Chloride 101 (98-107) mmol/L Carbon Dioxide 23.9 (21.0-32.0) mmol/L BUN 21 H (7.0-18.0) mg/dL Creatinine 1.2 (0.8-1.3) mg/dL Est Cr Clr Drug Dosing 79.22 mL/min Estimated GFR (MDRD) > 60.0 ml/min Glucose 150 H (74-106) mg/dL Calcium 8.9 (8.5-10.1) mg/dL Total Bilirubin 0.8 (0.2-1.0) mg/dL AST 13 L (15-37) IU/L ALT 23 (14-63) IU/L Alkaline Phosphatase 113 (46-116) U/L Total Protein 8.0 (6.4-8.2) g/dL Albumin 3.7 (3.4-5.0) g/dL Globulin 4.3 H (2.6-4.0) g/dL Albumin/Globulin Ratio 0.9 (0.9-1.6) Urine Color YELLOW Urine Appearance HAZY Urine pH 5.5 (5.0-8.0) Ur Specific [place] 1.025 (1.001-1.035) Urine Protein NEGATIVE (NEGATIVE) mg/dL Urine Glucose (UA) NEGATIVE (NEGATIVE) mg/dL Urine Ketones TRACE H (NEGATIVE) mg/dL Urine Occult Blood NEGATIVE (NEGATIVE) Urine Nitrite NEGATIVE (NEGATIVE) Urine Bilirubin NEGATIVE (NEGATIVE) Urine Urobilinogen 0.2 (<2.0) EU/dL Ur Leukocyte Esterase NEGATIVE (NEGATIVE) Med Orders - Current: Current Medications Hydrocodone Bitart/Acetaminophen ([place] 325-5 Mg) 1 - 2 tab PO Q4H PRN PRN Reason: Pain (moderate 4-6) Last Admin: 08/29/19 08:04 Dose: 2 tab Fentanyl (Sublimaze) 50 mcg IVPUSH Q5M PRN PRN Reason: Pain (severe 7-10) Stop: 08/29/19 23:23 Hydromorphone HCl (Dilaudid) 0.5 mg IVPUSH .Q5MIN PRN PRN Reason: Pain (severe 7-10) Stop: 08/29/19 23:24 Lactated Ringer's (Ringers, Lactated) 1,000 mls @ 125 mls/hr IV ASDIRECTED [facility] Last Admin: 08/28/19 21:13 Dose: 125 mls/hr Lactated Ringer's (Ringers, Lactated) 1,000 mls @ 125 mls/hr IV ASDIRECTED [facility] Last Admin: 08/29/19 01:12 Dose: 125 mls/hr Morphine Sulfate (Morphine) 1 - 5 mg IVPUSH Q1H PRN PRN Reason: Pain (severe 7-10) Ondansetron HCl (Zofran) 4 mg IVPUSH ONETIME PRN PRN Reason: Nausea Ondansetron HCl (Zofran) 4 mg IVPUSH Q4H PRN PRN Reason: Nausea Last Admin: 08/29/19 00:33 Dose: 4 mg Discontinued Medications Bupivacaine HCl (Marcaine 0.5%) Confirm Administered Dose 30 ml .ROUTE .STK-MED ONE Stop: 08/28/19 21:18 Cefazolin Sodium (Ancef) Confirm Administered Dose 1 gm .ROUTE .STK-MED ONE Stop: 08/28/19 22:48 Dexamethasone (Dexamethasone) Confirm Administered Dose 20 mg .ROUTE .STK-MED ONE Stop: 08/28/19 22:08 Ephedrine Sulfate (Ephedrine Sulfate) Confirm Administered Dose 50 mg .ROUTE .STK-MED ONE Stop: 08/28/19 22:32 Fentanyl (Sublimaze) Confirm Administered Dose 250 mcg .ROUTE .STK-MED ONE Stop: 08/28/19 21:23 Glycopyrrolate (Robinul) Confirm Administered Dose 0.6 mg .ROUTE .STK-MED ONE Stop: 08/28/19 23:29 Cefoxitin Sodium 2 gm/ Premix 50 mls @ 100 mls/hr IV ONETIME ONE Stop: 08/28/19 21:15 Last Admin: 08/28/19 21:11 Dose: 100 mls/hr Acetaminophen (Ofirmev) Confirm Administered Dose 100 mls @ as directed IV .STK- MED ONE Stop: 08/28/19 22:11 Iopamidol (Isovue Multipack-370 (76%)) 100 ml IVPUSH ONETIME STA Stop: 08/28/19 19:55 Last Admin: 08/28/19 19:54 Dose: 100 ml Ketorolac Tromethamine (Toradol) Confirm Administered Dose 30 mg .ROUTE .STK- MED ONE Stop: 08/28/19 23:22 Lidocaine (Xylocaine-Mpf 2%) Confirm Administered Dose 5 ml .ROUTE .STK-MED ONE Stop: 08/28/19 21:23 Midazolam HCl (Versed 1 Mg/Ml) Confirm Administered Dose 2 mg .ROUTE .STK-MED ONE Stop: 08/28/19 21:23 Neostigmine Methylsulfate (Neostigmine) Confirm Administered Dose 5 mg .ROUTE .STK-MED ONE Stop: 08/28/19 23:29 Ondansetron HCl (Zofran) Confirm Administered Dose 4 mg .ROUTE .STK-MED ONE Stop: 08/28/19 22:08 Ondansetron HCl (Zofran) Confirm Administered Dose 4 mg .ROUTE .STK-MED ONE Stop: 08/28/19 22:08 Propofol (Diprivan 20 Ml) Confirm Administered Dose 200 mg .ROUTE .STK-MED ONE Stop: 08/28/19 21:21 Rocuronium [place] (Zemuron) Confirm Administered Dose 100 mg .ROUTE .STK-MED ONE Stop: 08/28/19 21:23 Succinylcholine Chloride (Succinylcholine Chloride) Confirm Administered Dose 200 mg .ROUTE .STK-MED ONE Stop: 08/28/19 21:24 - Exam Wound/Incisions: Dressing Dry and Intact, No Drainage Quality Assessment: No: Supplemental Oxygen, Central Line/PICC General: Alert, Oriented, Cooperative, No Acute Distress HEENT: Pupils Equal, Pupils Reactive Neck: Supple Lungs: Clear to Auscultation, Normal Respiratory Effort Cardiovascular: Regular Rate, Regular Rhythm GI/Abdominal Exam: Normal Bowel Sounds, Soft, Non-Tender Extremities: Normal Inspection, Non-Tender Skin: Warm, Dry, Intact Neurological: No New Focal Deficit Psy/Mental Status: Alert, Normal Affect, Normal Mood - Problem List & Annotations (1) Incarcerated left inguinal hernia SNOMED Code(s): 035804372 Code(s): K40.30 - UNIL INGUINAL HERNIA, W OBST, W/O GANGR, NOT SPCF RECUR Status: Acute Priority: High Current Visit: Yes (2) Large bowel obstruction SNOMED Code(s): 191682717 Code(s): K56.609 - UNSP INTESTNL OBST, UNSP TO PARTIAL VERSUS COMPLETE OBST Status: Acute Priority: High Current Visit: Yes - Problem List Review Problem List Initiated/Reviewed/Updated: Yes - My Orders Last 24 Hours: Active Orders 24 hr Category Date Time Status Admission Status [Patient Status] [ADT] Stat ADT 08/28/19 20:16 Active Antiembolic Devices [RC] PER UNIT ROUTINE Care 08/28/19 23:48 Active Davis Catheter Insertion [Insert Urinary Catheter] [OM. Care 08/28/19 21:00 Ordered PC] Q24H Oxygen Therapy [RC] ASDIRECTED Care 08/28/19 23:48 Active Pulse Oximetry [RC] ASDIRECTED Care 08/28/19 20:55 Active Pulse Oximetry [RC] INTERMITTENT Care 08/28/19 23:48 Active Ready for Discharge [RC] PER UNIT ROUTINE Care 08/29/19 09:35 Ordered Up ad Linda [RC] PER UNIT ROUTINE Care 08/28/19 23:48 Active Advance Diet Instructions [DIET] Diet 08/28/19 Dinner Active Acetaminophen/HYDROcodone [[place] 325-5 MG] Med 08/28/19 23:48 Active 1 - 2 tab PO Q4H PRN HYDROmorphone [Dilaudid] Med 08/28/19 23:24 Active 0.5 mg IVPUSH .Q5MIN PRN Lactated Ringers [Ringers, Lactated] 1,000 ml Med 08/28/19 21:00 Active IV ASDIRECTED Lactated Ringers [Ringers, Lactated] 1,000 ml Med 08/28/19 23:45 Active IV ASDIRECTED Morphine Med 08/28/19 23:48 Active 1 - 5 mg IVPUSH Q1H PRN Ondansetron [Zofran] Med 08/28/19 23:22 Active 4 mg IVPUSH ONETIME PRN Ondansetron [Zofran] Med 08/28/19 23:48 Active 4 mg IVPUSH Q4H PRN fentaNYL [Sublimaze] Med 08/28/19 23:22 Active 50 mcg IVPUSH Q5M PRN Antiembolic Hose [OM.PC] Routine Oth 08/28/19 20:55 Ordered Antiembolic Hose [OM.PC] Routine Oth 08/28/19 23:48 Ordered Sequential Compression Device [OM.PC] Routine Oth 08/28/19 20:55 Ordered Sequential Compression Device [OM.PC] Routine Oth 08/28/19 23:48 Ordered Resuscitation Status Routine Resus Stat 08/28/19 20:55 Ordered Medication Orders Hydrocodone Bitart/Acetaminophen ([place] 325-5 Mg) 1 - 2 tab PO Q4H PRN PRN Reason: Pain (moderate 4-6) Last Admin: 08/29/19 08:04 Dose: 2 tab Admin: 08/29/19 01:12 Dose: 2 tab Fentanyl (Sublimaze) 50 mcg IVPUSH Q5M PRN PRN Reason: Pain (severe 7-10) Stop: 08/29/19 23:23 Hydromorphone HCl (Dilaudid) 0.5 mg IVPUSH .Q5MIN PRN PRN Reason: Pain (severe 7-10) Stop: 08/29/19 23:24 Lactated Ringer's (Ringers, Lactated) 1,000 mls @ 125 mls/hr IV ASDIRECTED [facility] Last Admin: 08/28/19 21:13 Dose: 125 mls/hr Lactated Ringer's (Ringers, Lactated) 1,000 mls @ 125 mls/hr IV ASDIRECTED [facility] Last Admin: 08/29/19 01:12 Dose: 125 mls/hr Morphine Sulfate (Morphine) 1 - 5 mg IVPUSH Q1H PRN PRN Reason: Pain (severe 7-10) Ondansetron HCl (Zofran) 4 mg IVPUSH ONETIME PRN PRN Reason: Nausea Ondansetron HCl (Zofran) 4 mg IVPUSH Q4H PRN PRN Reason: Nausea Last Admin: 08/29/19 00:33 Dose: 4 mg - Assessment Assessment (Free Text/Narrative):: Patient has had a good night and is feeling much better. Minimal discomfort. Voiding. Dressing dry. - Plan Plan (Free Text/Narrative):: Discharge. [place] 10 days.
== END 2019-08-29 14:00 | disposition home or self-care (01) ==
LOC: MW.ED 18:10 → MW.SDS 20:22 → MW.MS 20:22 → MW.SDS 08-29 00:27
PROVIDERS: ATTEND Surgery
DX: K40.30 Unilateral inguinal hernia, with obstruction, without gangrene, not specified as recurrent (principal); K56.609 Unspecified intestinal obstruction, unspecified as to partial versus complete obstruction; K63.89 Other specified diseases of intestine
CPT/HCPCS: 36415; 44110; 49507; 74177; 80053; 81003; 85025; 96365; 99284; A9270; J0131; J0330; J0690; J0694; J1100; J1885; J2001; J2250; J2405; J2704; J3010; J3490; J7120; Q9967; 88302; C1781